=== PATIENT | female | born 1970 ===

== ENCOUNTER 2018-03-23 17:19 | Emergency (ER) | payer BC, OTHER ==
[2018-03-23 17:31] VITALS: BP 156/107; PULSE 100; TEMP 99.1; O2SAT 100
--- NOTE | 2018-03-23 18:20 | C.PDOC ---
History Of Present Illness 47 year old female presents to the ED for evaluation of sweaty palm, anxiety and panic which began today. Patient states she experiences these episodes frequently. She has had multiple prior evaluations for the same. She has undergone multiple cardiac evaluations, which have been negative. Patient admits to using her home blood pressure cuff monitor frequently when she gets anxious, but then becomes more anxious when the readings are high. She reports good compliance with her HCTZ and synthroid. She denies losing weight, states she has been gaining weight due to dietary indiscretion. Patient reports she drinks two cups of coffee per day. She denies sleep apnea symptoms, elicit substance or alcohol use. Time Seen by Provider: 03/23/18 17:36 Chief Complaint (Nursing): High Blood Pressure History Per: Patient History/Exam Limitations: no limitations Onset/Duration Of Symptoms: Hrs Current Symptoms Are (Timing): Still Present Past Medical History Reviewed: Historical Data, Nursing Documentation, Vital Signs Vital Signs: Last Vital Signs Temp 99.1 F 03/23/18 17:28 Pulse 100 H 03/23/18 17:28 Resp 18 03/23/18 17:28 BP 156/107 H 03/23/18 17:28 Pulse Ox 100 03/23/18 17:28 - Medical History PMH: HTN, Hypothyroidism Surgical History: No Surg Hx Family History: States: Unknown Family Hx - Social History Hx Alcohol Use: Yes Hx Substance Use: No - Immunization History Hx Tetanus Toxoid Vaccination: No Hx Influenza Vaccination: No Hx Pneumococcal Vaccination: No Review Of Systems Psych: Positive for: Anxiety Physical Exam - Physical Exam Appears: Non-toxic, No Acute Distress, Other (anxious, obese female ) Skin: Normal Color, Warm, Dry Head: Atraumatic, Normacephalic Eye(s): bilateral: Normal Inspection Oral Mucosa: Moist Neck: Supple Chest: Symmetrical, No Deformity, No Tenderness Cardiovascular: Rhythm Regular, No Murmur Respiratory: Normal Breath Sounds, No Rales, No Rhonchi, No Wheezing Gastrointestinal/Abdominal: Soft, No Tenderness, No Guarding, No Rebound, Other (obese) Extremity: Normal ROM, Capillary Refill (less than 2 seconds ) Neurological/Psych: Oriented x3, Normal Speech, Normal Cognition ED Course And Treatment ECG: Interpreted By Me ECG Interpretation: Normal Rate From EC O2 Sat by Pulse Oximetry: 100 Pulse Ox Interpretation: Normal Progress Note: EKG ordered and reviewed. Xanax PO given. Medical Decision Making Medical Decision Making: recurrent panic/anxiety improved with Xanax PO Disposition Doctor Will See Patient In The: Office Counseled Patient/Family Regarding: Studies Performed, Diagnosis - Disposition Referrals: [facility] [Outside] [facility] [Outside] [facility] [Outside] [facility] [Outside] [facility] [Outside] Disposition: HOME/ ROUTINE Disposition Time: 18:20 Condition: GOOD Additional Instructions: outpatient follow-up with [facility] or [facility] for eval of Panic/anxiety disorder Call tomorrow for an appointment 45 minute power walk 5 days/week 8 hours sleep/night avoid stimulants Continued weight loss Xanax 0.25 mg once as needed for panic/anxiety Prescriptions: ALPRAZolam [Xanax] 0.25 mg PO ONCE #3 tab Instructions: Anxiety, Adult (DC), Panic Disorder (DC) Forms: [facility] (Bengali) - Clinical Impression Clinical Impression: Panic anxiety syndrome
[2018-03-23 19:08] VITALS: RESP 16
--- NOTE | 2018-03-24 21:40 | CARD ---
APPROVED REPORT Date of service: 03/23/2018 EKG Measurement Heart [id number] <Conclusion> Normal sinus rhythm Normal ECG
== END 2018-03-23 19:07 | disposition home or self-care (01) ==
LOC: C.ER 17:19
DX: F41.0 Panic disorder [episodic paroxysmal anxiety] (principal)